=== PATIENT | male | born 1985 | race Caucasian/White ===

== ENCOUNTER 2017-11-27 13:06 | Emergency (ER) | payer BC ==
[2017-11-27 14:21] VITALS: BP 157/105
--- NOTE | 2017-11-27 15:11 | UC ---
Lower Extremity/Ankle HPI - HPI Summary HPI Summary: Patient presents with a past medical history of HTN. He presents with complaints of right leg pain, redness and swelling. He reports that Tuesday he slept all day, and Tuesday thought he felt a little better, but today he felt worse. He states he has been having night sweats, fever and chills. He states his leg pain is worse when he walks, or flexes his foot. He denies any injury or trauma. - History of Current Complaint Chief Complaint: UCGeneralIllness Stated Complaint: FEVER, AND LEG PAIN Time Seen by Provider: 11/27/17 14:57 Hx Obtained From: Patient Onset/Duration: Gradual Onset, Lasting Days Severity Initially: Moderate Severity Currently: Severe Pain Intensity: 5 Aggravating Factor(s): Standing, Ambulation Alleviating Factor(s): Nothing Able to Bear Weight: Yes - Risk Factors Gout Risk Factors: Negative Septic Arthritis Risk Factor: Negative - Allergies/Home Medications Allergies/Adverse Reactions: Allergies Allergy/AdvReac Type Severity Reaction Status Date / Time No Known Allergies Allergy Verified 11/27/17 14:21 PMH/Surg Hx/FS Hx/Imm Hx Previously Healthy: Yes Cardiovascular History: Hypertension - Surgical History Surgical History: None - Family History Known Family History: Positive: Cardiac Disease, Hypertension - Social History Occupation: Employed Full-time Lives: Alone Alcohol Use: Rare Substance Use Type: None Smoking Status (MU): Never Smoked Tobacco Have You Smoked in the Last Year: No Review of Systems Constitutional: Fever, Chills, Fatigue Skin: Other - redness, swelling and warmth of the RLE. Eyes: Negative ENT: Negative Respiratory: Negative Cardiovascular: Negative Gastrointestinal: Negative Genitourinary: Negative Motor: Negative Neurovascular: Negative Musculoskeletal: Negative Neurological: Negative Psychological: Negative Is Patient Immunocompromised?: No All Other Systems Reviewed And Are Negative: Yes Physical Exam Triage Information Reviewed: Yes Appearance: Well-Appearing Vital Signs: Initial Vital Signs Temp 99.0 F 11/27/17 14:16 Pulse 109 11/27/17 14:16 Resp 16 11/27/17 14:16 BP 157/105 11/27/17 14:16 Pulse Ox 99 11/27/17 14:16 Vital Signs Reviewed: Yes Eye Exam: Normal ENT Exam: Normal Neck exam: Normal Respiratory Exam: Normal Cardiovascular Exam: Normal Abdominal Exam: Normal Musculoskeletal: Positive: Edema @ - RLE. pain of anterior leg with flexion and extension of right foot Skin Exam: Other - RLE with anterior edema, erythema, warm to touch. painful to palpation. reproducible pain with flexion and extension of the right foot of the anterior leg. Lower Extremity Course/Dx - Course Course Of Treatment: Patient presents with a past medical history of HTn and morbid obesity. He presents with 3 days onset fever, chills, and night sweats, with redness, warmth, swelling and pain of the RLE. I do feel he warrent further evaluation so I referred him to the ER where blood work can be obtained in a timely manner, and if the attending feels is appropriate a doppler study to r/o dvt, although the patient WELLS score is 3 moderate for risk, and therefore patient agrees to ER visit, he will drive self to ER. He did not want to be transported to the ER in an ambulance. - Differential Dx/Diagnosis Differential Diagnosis/HQI/PQRI: Cellulitis, DVT Provider Diagnoses: cellulitis. r/o dvt Discharge - Sign-Out/Discharge Documenting (check all that apply): Discharge - Discharge Plan Condition: Stable Disposition: [facility] Patient Education Materials: Cellulitis (DC) Referrals: Anthony Thomas MD [Primary Care Provider] - Additional Instructions: Patient was told to go to the ER at once. - Billing Disposition and Condition Condition: STABLE Disposition: EMTALA
== END 2017-11-27 15:09 | disposition short-term general hospital (02) ==
LOC: UCEAST 13:06
DX: L03.115 Cellulitis of right lower limb (principal); R50.9 Fever, unspecified; R53.83 Other fatigue; R61 Generalized hyperhidrosis; I10 Essential (primary) hypertension
CPT/HCPCS: 99202; G0463

== ENCOUNTER 2017-11-27 16:02 | Emergency (ER) | payer BC ==
[2017-11-27 17:09] LABS: ABS Basophils 0 10^3/ul (0-0.2); ABS Eosinophils 0.2 10^3/ul (0-0.6); ABS Lymphocytes 2.6 10^3/ul (1.0-4.8); ABS Monocytes 0.7 10^3/ul (0-0.8); ABS Nucleated RBC 0 10^3/ul; Eosinophil % 1.7 % (0-6); Hematocrit 45 % (42-52); Hemoglobin 14.6 g/dl (14.0-18.0); Lymphocyte % 17.8 % (25-47); Mean Corpuscular HGB Conc 33 g/dl (31-36); Mean Corpuscular Hemoglobin 29 pg (27-31); Mean Corpuscular Volume 89 fL (80-94); Nucleated Red Blood Cells % 0; Platelet Count 274 10^3/ul (150-450); Red Blood Count 5.03 10^6/ul (4.0-5.4); Red Cell Distribution Width 13 % (10.5-15); White Blood Count 14.5 10^3/ul (3.5-10.8)
[2017-11-27 17:24] LABS: EGFR Non-African American 97.8 (>60)
--- NOTE | 2017-11-27 19:05 | RAD ---
HISTORY: Right leg pain and swelling TECHNIQUE: Multiple transverse and longitudinal ultrasound images were obtained of the veins of the right lower extremity using grayscale, color Doppler, and spectral Doppler imaging with and without compression and with augmentation. FINDINGS: VEINS: The common femoral vein, deep femoral vein, femoral vein and popliteal vein are compressible throughout their course, with normal flow on color Doppler imaging and normal response to augmentation on spectral Doppler imaging. SOFT TISSUES: Grossly normal. No large popliteal fossa cyst was identified. IMPRESSION: No sonographic evidence of deep vein thrombosis.
[2017-11-27] MEDS ORDERED: Cephalexin CAP* 500 MG PO ONE (19:14)
[2017-11-27] MEDS ORDERED: Sulfamethox/Trimethoprim DS 800/160* TAB PO ONE (19:14)
[2017-11-27] MEDS ORDERED: Ibuprofen TAB* 600 MG PO ONE (19:16)
[2017-11-27 19:42] VITALS: BP 158/86
--- NOTE | 2017-12-08 14:46 | ED ---
Trev Bowman Elizabeth, scribed for Bandar Pérez MD on 11/27/17 at 1653 . Lower Extremity - HPI Summary HPI Summary: This patient is a 32 year old M presenting to [facility] with a chief complaint of right leg pain and erythema since last night. Symptoms aggravated by nothing. Symptoms alleviated by nothing. Patient reports fever, diaphoresis, and feeling lethargic since 3 days ago. Patient denies nausea, vomiting, coughing, and sore throat. - History of Current Complaint Chief Complaint: EDExtremityLower Stated Complaint: FEVER/SKIN IRRITATION Time Seen by Provider: 11/27/17 16:39 Hx Obtained From: Patient Onset of Pain: Hours Onset/Duration: Still Present Severity Initially: Mild Severity Currently: Mild Pain Intensity: 0 Timing: Constant Location: Is Discrete @ - right carter Associated Signs And Symptoms: Positive: Redness, Fever, Other - skin warmth - Allergies/Home Medications Allergies/Adverse Reactions: Allergies Allergy/AdvReac Type Severity Reaction Status Date / Time No Known Allergies Allergy Verified 11/27/17 14:21 Home Medications: Home Medications Lansoprazole CAP (NF) [Prevacid CAP (NF)] 30 mg PO BID 11/27/17 [History Confirmed 11/27/17] PMH/Surg Hx/FS Hx/Imm Hx Endocrine/Hematology History: Denies: Hx Diabetes, Hx Thyroid Disease Cardiovascular History: Reports: Hx Hypertension Respiratory History: Denies: Hx Asthma, Hx Chronic Obstructive Pulmonary Disease (COPD) GI History: Denies: Hx Ulcer Infectious Disease History: No Infectious Disease History: Denies: Hx Hepatitis, Hx Human Immunodeficiency Virus (HIV), Traveled Outside the [place] in Last 30 Days - Family History Known Family History: Positive: Cardiac Disease, Hypertension - Social History Alcohol Use: Rare Substance Use Type: Reports: None Smoking Status (MU): Never Smoked Tobacco Have You Smoked in the Last Year: No Review of Systems Positive: Fever - subjective fever, Skin Diaphoresis. Negative: Chills Negative: Erythema Negative: Sore Throat Negative: Chest Pain Negative: Shortness Of Breath, Cough Negative: Abdominal Pain, Vomiting, Diarrhea, Nausea Negative: dysuria, hematuria Negative: Myalgia, Edema Positive: Rash - rash on right carter Neurological: Other - NEGATIVE DIZZINESS All Other Systems Reviewed And Are Negative: Yes Physical Exam - Summary Physical Exam Summary: Constitutional: Well-developed, Well-nourished, Alert. (-) Distressed Skin: Warm, Dry HENT: Normocephalic; Atraumatic Eyes: Conjunctiva normal Neck: Musculoskeletal ROM normal neck. (-) JVD, (-) Stridor, (-) Tracheal deviation Cardio: Rhythm regular, rate normal, Heart sounds normal; Intact distal pulses; The pedal pulses are 2+ and symmetric. Radial pulses are 2+ and symmetric. (-) Murmur Pulmonary/Chest wall: Effort normal. (-) Respiratory distress, (-) Wheezes, (-) Rales Abd: Soft, (-) Tenderness, (-) Distension, (-) Guarding, (-) Rebound Musculoskeletal: (-) Edema Lower Extremity: Raised red area pressing 1cm by 1cm over right carter surrounded by a 5cm by 5cm area of erythema. Lymph: (-) Cervical adenopathy Neuro: Alert, Oriented x3 Psych: Mood and affect Normal Triage Information Reviewed: Yes Vital Signs On Initial Exam: Initial Vitals Temp Pulse Resp BP Pulse Ox 97.8 F 116 16 157/84 98 11/27/17 16:05 11/27/17 16:05 11/27/17 16:05 11/27/17 16:05 11/27/17 16:05 Vital Signs Reviewed: Yes Diagnostics - Vital Signs Vital Signs Temp Pulse Resp BP Pulse Ox 11/27/17 16:05 97.8 F 116 16 157/84 98 - Laboratory Result Diagrams: 11/27/17 17:00 11/27/17 17:00 Lab Statement: Any lab studies that have been ordered have been reviewed, and results considered in the medical decision making process. - Additional Comments Diagnostic Additional Comments: Venous Doppler Study Interpreted by radiologist. IMPRESSION: No sonographic evidence of deep vein thrombosis. Dr. Pérez has reviewed this report. Lower Extremity Course/Dx - Course Course Of Treatment: This patient is a 32 year old M presenting to [facility] with a chief complaint of right leg pain and erythema since last night. Symptoms aggravated by nothing. Symptoms alleviated by nothing. Patient reports fever, diaphoresis, and feeling lethargic since 3 days ago. Patient denies nausea, vomiting, coughing, and sore throat. Physical exam reveals raised red area pressing 1cm by 1cm over right carter surrounded by a 5cm by 5cm area of erythema. Venous Doppler study reveals, per radiologist, no sonographic evidence of DVT. ED physician has reviewed this radiology report. Test results with no significant abnormalities. In the ED course the patient was given Keflex, Ibuprofen, and Bactrim. Patient will be discharged with prescription for Keflex, Bactrim, and tramadol and follow up from primary care physician in 2-3 days. The patient is agreeable with this plan. Patient is diagnosed with right leg cellulitis with no DVT or signs of necrotizing fasciitis. - Diagnoses Provider Diagnoses: Cellulitis of right leg Discharge - Sign-Out/Discharge Documenting (check all that apply): Discharge - Discharge Plan Condition: Stable Disposition: HOME Prescriptions: Cephalexin CAP* [Keflex CAP*] 500 mg PO QID #40 cap Sulfamethox/Trimethoprim DS* [Bactrim DS 800/160 TAB*] 1 tab PO BID #20 tab traMADol TAB* [Ultram*] 50 mg PO Q6HR PRN #8 tab MDD 4 PRN Reason: Pain Scale 6-10 Patient Education Materials: Cellulitis (ED) Referrals: Anthony Thomas MD [Primary Care Provider] - 2 Days Additional Instructions: Return to the emergency department with any changing or worsening symptoms. Follow up with primary care physician in 2-3 days. The documentation as recorded by the Trev stone Elizabeth accurately reflects the service I personally performed and the decisions made by Beto blake Jerry, MD.
== END 2017-11-27 19:41 | disposition home or self-care (01) ==
LOC: ED 16:02
DX: L03.115 Cellulitis of right lower limb (principal); I10 Essential (primary) hypertension
CPT/HCPCS: 36415; 80053; 85025; 99283; A9270-GY